=== PATIENT | female | born 1990 | race African-American/Black ===

== ENCOUNTER 2016-10-05 23:20 | Emergency (ER) | payer OTHER ==
[~2016-10-05] VITALS: Ht 157.5 cm; Wt 85.7 kg
[2016-10-05] MEDS ORDERED: NYQUIL (23:35)
[2016-10-05] MEDS ORDERED: ACCUNEB SO1.25 MG/1 INH (23:36)
[2016-10-06] MEDS ORDERED: ZPAK PO (01:15)
[2016-10-06 01:21] VITALS: BP 112/74
== END 2016-10-06 01:22 | disposition home or self-care (01) ==
LOC: ER 23:20
DX: J18.9 Pneumonia, unspecified organism (principal); J45.909 Unspecified asthma, uncomplicated; Z88.8 Allergy status to other drugs, medicaments and biological substances

== ENCOUNTER 2016-11-28 18:43 | Emergency (ER) | payer OTHER ==
[~2016-11-28] VITALS: Ht 157.5 cm; Wt 86.2 kg
[~2016-11-28 18:43] MED LIST: ACCUNEB SO1.25 MG/1 INH; NYQUIL; ZPAK PO
[2016-11-28] MEDS ORDERED: NORCO 5-325 TA1 EACH PO (19:26)
[2016-11-28 19:46] VITALS: BP 133/75
== END 2016-11-28 20:32 | disposition home or self-care (01) ==
LOC: ER 18:43
DX: S92.351A Displaced fracture of fifth metatarsal bone, right foot, initial encounter for closed fracture (principal); S93.402A Sprain of unspecified ligament of left ankle, initial encounter; J45.909 Unspecified asthma, uncomplicated; Z88.8 Allergy status to other drugs, medicaments and biological substances; W18.39XA Other fall on same level, initial encounter; Y93.89 Activity, other specified; Y92.89 Other specified places as the place of occurrence of the external cause; Y99.8 Other external cause status

== ENCOUNTER 2016-12-28 20:08 | Emergency (ER) | payer OTHER ==
[~2016-12-28] VITALS: Ht 157.5 cm; Wt 81.7 kg
[~2016-12-28 20:08] MED LIST changes: +NORCO 5-325 TA1 EACH PO
[2016-12-28 20:43] VITALS: BP 110/73
== END 2016-12-28 20:44 | disposition home or self-care (01) ==
LOC: ER 20:08
DX: K91.840 Postprocedural hemorrhage of a digestive system organ or structure following a digestive system procedure (principal); J45.909 Unspecified asthma, uncomplicated; Z88.8 Allergy status to other drugs, medicaments and biological substances; Z87.19 Personal history of other diseases of the digestive system

== ENCOUNTER 2019-01-25 01:13 | Emergency (ER) | payer OTHER ==
[~2019-01-25] VITALS: Ht 157 cm; Wt 79.4 kg
[2019-01-25 01:56] LABS: URINE BILIRUBIN NEGATIVE (Negative); URINE BLOOD NEGATIVE (Negative); URINE CLARITY CLEAR; URINE COLOR YELLOW; URINE GLUCOSE-RANDOM* NEGATIVE (Negative); URINE KETONES NEGATIVE (Negative); URINE LEUKOCYTES-REFLEX NEGATIVE (Negative); URINE NITRITE-REFLEX NEGATIVE (Negative); URINE PROTEIN (DIPSTICK) NEGATIVE (Negative); URINE SPECIFIC GRAVITY <= 1.005 (1.005-1.035); URINE UROBILINOGEN 0.2 E.U./dl (0.2-1.0)
[2019-01-25 01:57] LABS: ABSOLUTE NEUTROPHILS 6.5 thou/uL (1.4-8.2); BASOPHILS 0.5 % (0.0-2.0); EOSINOPHILS 3.3 % (0.0-3.0); HEMATOCRIT 35.9 % (37.0-47.0); HEMOGLOBIN 11.6 gm/dL (12.0-15.0); LYMPHOCYTES 20.2 % (24.0-44.0); MCH 26.4 pg (26.0-34.0); MCHC 32.4 g/dL (28.0-37.0); MCV 81.7 fL (80.0-100.0); MONOCYTES 7.6 % (1.0-8.0); PLATELET COUNT 264 thou/uL (150-400); POLYS 68.4 % (36.0-66.0); RDW 14.1 % (10.5-14.5); WBC 9.5 thou/uL (4.0-11.0)
[2019-01-25 02:02] LABS: CREATININE 0.8 mg/dL (0.6-1.0); POTASSIUM 4.4 mmol/L (3.5-5.1)
[2019-01-25 02:09] LABS: ALBUMIN 3.4 g/dL (3.4-5.0); TOTAL BILIRUBIN 0.2 mg/dL (<0.1-1.0); TOTAL PROTEIN 7.2 g/dL (6.4-8.2)
[2019-01-25] MEDS ORDERED: BENTYL 20 MG TA20 M1 PO (03:07)
[2019-01-25 03:16] VITALS: BP 108/60
== END 2019-01-25 03:16 | disposition home or self-care (01) ==
LOC: ER 01:13
PROVIDERS: Emergency Medicine
DX: R10.30 Lower abdominal pain, unspecified (principal); J45.909 Unspecified asthma, uncomplicated